=== PATIENT | female | born 1975 ===

== ENCOUNTER 2017-05-13 15:08 | Emergency (ER) | payer OTHER ==
[2017-05-13 15:09] VITALS: BMI 33.8
--- NOTE | 2017-05-13 16:50 | ED PDOC ---
HPI: CCC, URI, Sore Throat Chief Complaint (Provider): ENT Problem History Per: Patient History/Exam Limitations: no limitations <Nidia Garsia PA-C - Last Filed: 05/13/17 20:01> <Lizzette Randolph - Last Filed: 05/13/17 21:49> Time Seen by Provider: 05/13/17 15:48 Chief Complaint (Nursing): ENT Problem Additional Complaint(s): Patient reports pain to the throat specific under chin. Reports swelling and pain under the chin. Patient was seen at [facility] [place] yesterday was was diagnosed with throat infection and given Amoxicillin. States taking Amoxicillin without relief. Otherwise: (-) fever, (-) cough, (-) sore throat, (-) URI symptoms, (-) vomiting, (-) SOB, (-) dysphasia,(-) chest pain, (-) N/V/D, (-) abdominal pain, (-) flank pain, (-) urinary symptoms, (-) rash, (-) recent travel, (-) sick contacts. PMD: Shaik Terri MD (Nidia Garsia PA-C) Supervising Attending Note <Nidia Garsia PA-C - Last Filed: 05/13/17 20:01> - Supervising Attending Note The Documented history was done by the: Physician Final Inspector And Tester, Attending Physician The documented physical exam was done by the: Physician Final Inspector And Tester, Attending Physician - Attestation: I have personally seen and examined this patient.: Yes I have fully participated in the care of the patient.: Yes I have reviewed all pertinent clinical information, including history, physical exam and plan: Yes <Lizzette Randolph - Last Filed: 05/13/17 21:49> - Notes: Notes:: Marked swelling just inferior/posterior to midline mandible with ttp and erythematous tracking anterior neck inferiorly. No dental tenderness. 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 Recommend IV Decadron and IV clindamycin, will come to ER to eval patient DW pt findings and plan of care. (Lizzette Randolph) Past Medical History Reviewed: Historical Data, Nursing Documentation, Vital Signs - Medical History PMH: No Chronic Diseases - Surgical History Surgical History: No Surg Hx - Family History Family History: States: No Known Family Hx Other Family History: Breast cancer - Social History Current smoker - smoking cessation education provided: Yes (Heavy Smoker > 10 Cigarettes Daily) Alcohol: None Drugs: Denies - Immunization History Hx Tetanus Toxoid Vaccination: No Hx Influenza Vaccination: No Hx Pneumococcal Vaccination: No <Nidia Garsia PA-C - Last Filed: 05/13/17 20:01> <Lizzette Randolph - Last Filed: 05/13/17 21:49> Vital Signs: Last Vital Signs Temp 99.4 F 05/13/17 15:29 Pulse 88 05/13/17 21:43 Resp 18 05/13/17 21:43 BP 132/68 05/13/17 21:43 Pulse Ox 99 05/13/17 21:43 - Home Medications Home Medications: Ambulatory Orders Medication Instructions Recorded Amoxicillin [Amoxil 500 mg Cap] 500 mg PO TID #29 cap 05/11/17 Ibuprofen [Motrin] 600 mg PO TID #21 tab 05/11/17 - Allergies Allergies/Adverse Reactions: Allergies Allergy/AdvReac Type Severity Reaction Status Date / Time No Known Allergies Allergy Verified 05/13/17 15:29 Review of Systems ROS Statement: Except As Marked, All Systems Reviewed And Found Negative (As per HPI, otherwise negative) Constitutional: Negative for: Fever, Other (dysphasia) ENT: Positive for: Throat Pain (specific under the chin) Cardiovascular: Negative for: Chest Pain Gastrointestinal: Negative for: Vomiting Skin: Negative for: Rash <Nidia Garsia PA-C - Last Filed: 05/13/17 20:01> Physical Exam - Reviewed Nursing Documentation Reviewed: Yes Vital Signs Reviewed: Yes <Nidia Garsia PA-C - Last Filed: 05/13/17 20:01> <Lizzette Randolph - Last Filed: 05/13/17 21:49> - Physical Exam Comments: GENERAL APPEARANCE: Patient is awake, alert, oriented x 3, in moderate acute distress. SKIN: Warm, dry; (-) cyanosis, (-) rash. (-) Decubitus Ulcer EYES: (-) conjunctival pallor, (-) scleral icterus, (-) conjunctival hemorrhage. ENMT: Mucous membranes moist. TMs: (-) erythema. Airway patent: (-) stridor. Pharynx: (-) erythema, (-) exudate. (+)speaking in full sentences, (-)drooling, (+) swelling and tenderness to submental area, (+) non tender cervical adenopathy NECK: (-) tenderness, (-) stiffness, (-) meningismus, (-) lymphadenopathy. CHEST AND RESPIRATORY: (-) accessory muscle use. Lungs: (-) rales, (-) rhonchi, (-) wheezes, (-) rub; breath sounds equal bilaterally. HEART AND CARDIOVASCULAR: (-) irregularity; (-) murmur, (-) gallop, (-) rub. ABDOMEN AND GI: Soft; (-) tenderness, (-) guarding; (-) organomegaly; (-) mass ; (-) CVA tenderness. EXTREMITIES: (-) deformity; (-) cellulitis, (-) lymphangitis; (-) subungual hemorrhage; (-) edema. NEURO AND PSYCH: Mental status as above; (-) focal findings. (Nidia Garsia PA-C) - Laboratory Results Result Diagrams: 05/13/17 16:50 05/13/17 16:50 - ECG O2 Sat by Pulse Oximetry: 98 (RA) Pulse Ox Interpretation: Normal <Nidia Garsia PA-C - Last Filed: 05/13/17 20:01> - Laboratory Results Result Diagrams: 05/13/17 16:50 05/13/17 16:50 <Lizzette Randolph - Last Filed: 05/13/17 21:49> Medical Decision Making <Nidia Garsia PA-C - Last Filed: 05/13/17 20:01> <Lizzette Randolph - Last Filed: 05/13/17 21:49> Medical Decision Making: Time: 16:10 Impression : r/o alesia's angina, possible sialadenitis Plan: Neck soft tissue w/ contrast CMP CBC w/ differential Toradol 30mg IVP Blood culture IV Insertion Reevaluation Lab results reviewed, patient noted to have a white blood cell count of 13 with a left shift. On reevaluation, the patient is laying in bed comfortably in no acute distress, breathing is easy and unlabored, no drooling. Patient went to CT. Patient returned from CAT scan without any incident, results are still pending. Case endorsed to ALESHIA Keene at [address] results and final disposition. Scribe Attestation: Documented by Josie Keene acting as a scribe for PA. TINO Tidwell PA-C Scribe Attestation: All medical record entries made by the Scribe were at my direction and personally dictated by me. I have reviewed the chart and agree that the record accurately reflects my personal performance of the history, physical exam, medical decision making, and the department course for this patient. I have also personally directed, reviewed, and agree with the discharge instructions and disposition. 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 <Nidia Garsia PA-C - Last Filed: 05/13/17 20:01>
[2017-05-13 17:02] LABS: BASO # 0.1 K/uL (0.0-0.2); BASO % 0.6 % (0.0-2.0); EOS # 0.1 K/uL (0.0-0.7); HEMOGLOBIN 14.1 g/dL (12.0-16.0); LYMPH % 14.5 % (20.0-40.0); MEAN CORPUSCULAR HEMOGLOBIN 30.9 pg (27.0-31.0); MEAN CORPUSCULAR HGB CONC 33.8 g/dL (33.0-37.0); MEAN PLATELET VOLUME 11.5 fl (7.2-11.7); MONO % 7.2 % (0.0-10.0); NEUT # 10.7 K/uL (1.8-7.0); NEUT % 76.7 % (50.0-75.0); RBC 4.57 Mil/uL (3.80-5.20); RED CELL DISTRIBUTION WIDTH 14.4 % (11.5-14.5); WHITE BLOOD COUNT 13.9 K/uL (4.8-10.8)
[2017-05-13 17:05] LABS: MEAN CELL VOLUME 91.3 fl (81.0-99.0)
[2017-05-13 17:07] LABS: ALBUMIN 4.1 g/dL (3.5-5.0); ALT/SGPT 24 U/L (9-52); AST/SGOT 19 U/L (14-36); BLOOD UREA NITROGEN 10 mg/dl (7-17); CALCIUM 9.2 mg/dL (8.4-10.2); GFR AFRICAN-AMERICAN > 60; GFR NON-AFRICAN AMERICAN > 60
[2017-05-13] MEDS ORDERED: Iohexol 300 100 ML IJ ONE (18:29)
--- NOTE | 2017-05-13 20:17 | ED PDOC ---
- Laboratory Results Result Diagrams: 05/13/17 16:50 05/13/17 16:50 - ECG O2 Sat by Pulse Oximetry: 98 (RA) - Progress ED Course And Treament: IMPRESSION: - 4.5 x 0.3 cm linear/elongated low density masslike area in the floor of the mouth soft tissues in the midline, extending from the anterior aspect of the hyoid bone to the posterior cortex of the mandible. This is of uncertain etiology. It could represents a thyroglossal duct cyst. It could also represent an abscess in the floor of the mouth. There is associated soft tissue swelling. - See above for remaining findings. Thank you for allowing us to participate in the care of your patient. Dictated and Authenticated by: Dorene Thompson MD Dr. Enriquez has discussed case with Dr. Riley Clindamycin 600mg iv x 1 dose Decadron 10 mg iv x 1 dose ordered NS 1 liter 500ml per hour Seen by Dr. Riley in ED. Patient to be transferred to [facility] for management by Dr. Ceballos ENT. Disposition - Clinical Impression Clinical Impression: Neck swelling - POA Present On Arrival: None - Disposition Disposition: Other Institution Disposition Time: 23:51 Condition: STABLE Forms: [employer] (French)
--- NOTE | 2017-05-13 20:18 | CT ---
EXAM: CT Neck With Intravenous Contrast EXAM DATE/TIME: 05/13/2017 4:10 PM CLINICAL HISTORY: 41 years old, female; Signs and symptoms; Other: Swelling submental area; Additional info: Edema pain submental area TECHNIQUE: Axial computed tomography images of the neck with intravenous contrast. All CT scans at this facility use one or more dose reduction techniques, viz.: automated exposure control; ma/kV adjustment per patient size (including targeted exams where dose is matched to indication; i.e. head); or iterative reconstruction technique. Coronal and sagittal reformatted images were created and reviewed. CONTRAST: 95 mL of OMNIPAQUE-300 administered intravenously. COMPARISON: No relevant prior studies available. FINDINGS: NASOPHARYNX: No acute abnormality of the adenoidal/nasopharyngeal tonsils identified. OROPHARYNX: No acute abnormality of the palatine tonsils identified. HYPOPHARYNX: No acute abnormality of the pyriform sinuses visualized. LARYNX: No acute abnormality of the epiglottis identified. No acute abnormality of the vocal cords identified. TRACHEA: Visualized portions of the trachea appear patent. RETROPHARYNGEAL SPACE: No evidence of prevertebral/retropharyngeal fluid or fluid collection. SUBMANDIBULAR/PAROTID GLANDS: No acute abnormality of the parotid or submandibular glands identified. THYROID: Thyroid gland is mildly enlarged, and contains multiple nodules, the largest measuring 2.2 cm, and located in the right lobe anteriorly. Recommend further evaluation with thyroid ultrasound. BONES/JOINTS: No acute fractures or other acute bony abnormality visualized. Negative. SOFT TISSUES: Best seen on image 56 of series 2 and image 47 series 602, there is a elongated, low density masslike area with a linear configuration and enhancing margins, located in the floor of the mouth soft tissues, located in the midline, which extends harrison-posteriorly from the anterior aspect of the hyoid bone to the posterior mandibular cortex. This measures approximately 4.5 cm in length/AP dimensions and 3 mm in width. It is of uncertain etiology. There appears to be associated swelling of the floor of the mouth soft tissues. No associated gas. VASCULATURE: No acute abnormality of the major neck vessels seen. LYMPH NODES: No evidence of diffuse lymphadenopathy. LUNG APICES: Lung apices appear clear. IMPRESSION: - 4.5 x 0.3 cm linear/elongated low density masslike area in the floor of the mouth soft tissues in the midline, extending from the anterior aspect of the hyoid bone to the posterior cortex of the mandible. This is of uncertain etiology. It could represents a thyroglossal duct cyst. It could also represent an abscess in the floor of the mouth. There is associated soft tissue swelling. - See above for remaining findings.
[2017-05-13] MEDS ORDERED: Sodium Chloride 0.9% 1,000 ML IV STA (21:07)
[2017-05-13] MEDS ORDERED: Clindamycin 600mg/50ml NS 600 MG/50 ML BAG IVPB STA (21:27)
[2017-05-13] MEDS ORDERED: Dextrose 5%/0.9% NS 1,000 ML IV SCH (22:45)
--- NOTE | 2017-05-13 23:08 | CP.PCM.PN ---
Subjective - Date & Time of Evaluation Date of Evaluation: 05/13/17 Time of Evaluation: 22:00 - Subjective Subjective: see below Objective - Vital Signs/Intake and Output Vital Signs (last 24 hours): Temp Pulse Resp BP Pulse Ox 99.4 F 88 18 132/68 98 05/13/17 15:29 05/13/17 21:43 05/13/17 21:43 05/13/17 21:43 05/13/17 22:17 - Medications Medications: Current Medications Sodium Chloride (Sodium Chloride 0.9%) 1,000 mls @ 500 mls/hr IV .Q2H STA Stop: 05/13/17 23:06 Last Admin: 05/13/17 22:39 Dose: 500 mls/hr Dextrose/Sodium Chloride (Dextrose 5%/0.9% Ns 1000 Ml) 1,000 mls @ 100 mls/hr IV .Q10H JAY - Labs Labs: 05/13/17 16:50 05/13/17 16:50 Assessment and Plan - Assessment and Plan (Free Text) Assessment: ENT Consult CC neck/throat pain HPI 41 y/o healthy female with 5 days of throat and neck pain. She was put on Amoxicillin 3 days ago without improvement. She works in [email or web address] at [employer]. She notes progressive worsening of her complaints since Sunday. Currentlythe most pain is in the submentum. There is pain with swallowing. No voice changes. No trouble breathing. NKDA PMH denies ROS see HPI Exam awake, alert, comfortable breathing comfortably; no distress oc/op clear; FOM soft and non-tender; no FOM swelling nose clear face symmetric Neck: diffuse submental swelling, induration and erythema. trachea midline. Fiberoptic laryngoscopy: epiglottis crisp; slight vallecular swelling st the base of the epiglottis without any rotation of the epiglottis or obstruction of the airway. no hypopharyngeal or laryngeal edema. b/l TVC symmetric and mobile. airway widely patent. CT reviewed: there are 2 areas of hypodensity with rim enhancement (one anterior to the hyoid bone, the other posterior to inner cortex of the mandible in the midline Impression Neck cellulitis and small abscesses on imaging. Plan
[2017-05-13 23:18] VITALS: BP 104/66; PULSE 82; RESP 16; TEMP 98.3
[2017-05-13 23:51] VITALS: O2SAT 98
== END 2017-05-13 23:48 | disposition short-term general hospital (02) ==
LOC: H.ER 15:08
DX: R22.1 Localized swelling, mass and lump, neck (principal); F17.210 Nicotine dependence, cigarettes, uncomplicated
CPT/HCPCS: 70491; 80053; 81025; 85025; 87040; 96361; 96365; 96375; 99283; J1100; J1885; J7040; Q9967

== ENCOUNTER 2017-05-27 15:41 | Emergency (ER) | payer OTHER ==
[2017-05-27 15:41] VITALS: BMI 33.8
[2017-05-27 16:00] VITALS: RESP 18
--- NOTE | 2017-05-27 16:53 | ED PDOC ---
HPI: General Adult Time Seen by Provider: 05/27/17 16:01 Chief Complaint (Nursing): ENT Problem Chief Complaint (Provider): Throat Pain History Per: Patient History/Exam Limitations: no limitations Onset/Duration Of Symptoms: Other (x 1 month) Current Symptoms Are (Timing): Still Present Recently: Seen In ED Additional Complaint(s): Guillermo is a 41 y/o female who presents to the ED complaining of throat pain that has been ongoing for 1 month with associated swelling of the neck. Patient was seen in the ED on the and had a CT done which demonstrated a large abscess. She was evaluated in the ER by Dr. Riley and transferred to [facility] for definitive treatment. According to patient, at [facility], she was observed overnight and discharged with antibiotics. Since then she reports the swelling and pain have decreased until last night when her symptoms returned. Today, she also complains of subjective fever and pain with swallowing but denies tongue enlargement, cough, or rhinorrhea. Patient is still on a course of clindamycin. She has been taking motrin with no relief. PMD: Leanna Murray Past Medical History Reviewed: Historical Data, Nursing Documentation, Vital Signs Vital Signs: Last Vital Signs Temp 98.9 F 05/28/17 05:16 Pulse 72 05/28/17 05:16 Resp 18 05/28/17 05:16 BP 103/63 05/28/17 05:16 Pulse Ox 99 05/28/17 05:53 - Medical History PMH: No Chronic Diseases - Surgical History Surgical History: No Surg Hx - Family History Family History: States: Other Other Family History: Breast cancer - Social History Current smoker - smoking cessation education provided: Yes Alcohol: None Drugs: Denies - Immunization History Hx Tetanus Toxoid Vaccination: No Hx Influenza Vaccination: No Hx Pneumococcal Vaccination: No - Home Medications Home Medications: Ambulatory Orders Medication Instructions Recorded Amoxicillin [Amoxil 500 mg Cap] 500 mg PO TID #29 cap 05/11/17 Ibuprofen [Motrin] 600 mg PO TID #21 tab 05/11/17 - Allergies Allergies/Adverse Reactions: Allergies Allergy/AdvReac Type Severity Reaction Status Date / Time No Known Allergies Allergy Verified 05/13/17 15:29 Review of Systems ROS Statement: Except As Marked, All Systems Reviewed And Found Negative Constitutional: Positive for: Fever (subjective) ENT: Positive for: Throat Pain, Other ((+) pain with swallowing, (-) tongue enlargement). Negative for: Nose Discharge Respiratory: Negative for: Cough Physical Exam - Reviewed Nursing Documentation Reviewed: Yes Vital Signs Reviewed: Yes - Physical Exam Appears: Positive for: In Acute Distress (moderate painful distress) Head Exam: Positive for: ATRAUMATIC, NORMOCEPHALIC Skin: Positive for: Warm, Dry Eye Exam: Positive for: EOMI, PERRL ENT: Positive for: Pharynx Is (clear), Other (tacky mucous membrane). Negative for: Pharyngeal Erythema, Tonsillar Exudate, Tonsillar Swelling Neck: Negative for: Normal (soft tissue swelling anterior upper neck just under chin, (-) erythema) Cardiovascular/Chest: Positive for: Regular Rate, Rhythm. Negative for: Murmur Respiratory: Positive for: Normal Breath Sounds. Negative for: Respiratory Distress Gastrointestinal/Abdominal: Positive for: Soft. Negative for: Tenderness Back: Positive for: Normal Inspection. Negative for: Decreased ROM Extremity: Positive for: Normal ROM. Negative for: Deformity Neurologic/Psych: Positive for: Alert, Oriented. Negative for: Motor/Sensory Deficits - Laboratory Results Result Diagrams: 05/27/17 17:25 05/27/17 17:25 - ECG O2 Sat by Pulse Oximetry: 99 (RA) Pulse Ox Interpretation: Normal - Critical Care Total Time (In Min): 30 Medical Decision Making Medical Decision Making: Time: 16:26 Initial Impression: Recurrent neck abscess Initial Plan: --CMP --Lactic Acid --CBC --Blood Culture --Decadron Time: 16:53 --Discussed case with Dr. Ballard, ENT air defense control officer, who recommends repeat CT scan of neck and broad spectrum antibiotics started. Will call back for further recommendations. --CT Neck Soft Tissue ordered Accession No. : [id number] Patient Name / ID : HERMELINDA LI / [id number] Exam Date : 05/27/2017 17:56:22 ( Approved ) Study Comment : Sex / Age : F / 41Y Creator : Madie Vega MD Dictator : Geochemist : Stockroom Attendant : Madie Vega MD Approver2 : Report Date : 05/27/2017 19:15:00 My Comment : [facility] Division of Radiology [address] [address] Tel. no. Patient Name: GUILLERMO SHEN Pt. Address: [address] [place] [address]. Rec #: [id number] [place] [address]: Agustín JIMÉNEZ, Lizzette Raymond Pt CELL Order Location: [place] : 1975 Female Age: 41 Order #: [id number] Reason for exam: neck swelling h/o abscess CT Scan NECK SOFT TISSUE W/CONTRAST Exam Date: 05/27/17 This imaging exam was performed at [facility] EXAM: CT Neck With Intravenous Contrast CLINICAL HISTORY: 41 years old, female; Signs and symptoms; Mass, lump, or swelling in neck and other: H/o abcess; Additional info: Neck swelling h/o abscess TECHNIQUE: Axial computed tomography images of the neck with intravenous contrast. All CT scans at this facility use one or more dose reduction techniques, viz.: automated exposure control; ma/kV adjustment per patient size (including targeted exams where dose is matched to indication; i.e. head); or iterative reconstruction technique. Coronal and sagittal reformatted images were created and reviewed. CONTRAST: 80 mL of [id number] administered intravenously. COMPARISON: CT - NECK SOFT TISSUE W/CONTRAST 2017-05-13 18:34 FINDINGS: Nasopharynx: No acute abnormality as visualized. Oropharynx: No acute abnormality as visualized. No significant tonsillar enlargement. No peritonsillar abscess. Hypopharynx: No acute abnormality as visualized. Larynx: No acute abnormality as visualized. Normal epiglottis. Trachea: No acute abnormality as visualized. Retropharyngeal space: No acute abnormality as visualized. Submandibular/parotid glands: No acute abnormality as visualized. Glands are normal in size. Thyroid: Enlarged. Bilateral nodules, the largest appears complex measuring approximately 2 cm on the right anteriorly. Further evaluation with dedicated ultrasound recommended. Bones/joints: No acute fracture. Soft tissues: Best seen on image 36-40 of series 2 and image 38 series 602, there is a elongated, low density masslike area with a linear configuration and enhancing margins, located in the midline, extending from the anterior aspect of the hyoid bone. This is measured at approximately 3 x 1 cm. Appears to be decreased in size from prior study with area of extension to the posterior mandibular cortex not as obvious. It is of uncertain etiology. Evidence of associated swelling of the floor of the mouth soft tissues. Vasculature: No acute findings. Lymph nodes: Slight prominence of level IIa and lymph nodes. Prominent level IIIa lymph nodes on the right. Prominent level Va lymph node on the right. Lung apices: No acute abnormality as visualized. IMPRESSION: Again noted is elongated hypoattenuating area with peripheral enhancement along the midline of the floor the mouth. Appears to be decreased in size from prior study with area of extension to the posterior mandibular cortex not as obvious. Evidence of associated surrounding soft tissue swelling and mild adenopathy. Question abscess versus infected thyroglossal duct cyst. Correlate clinically. Followup imaging recommended. Dictated By: Madie Vega MD Dictated Date/Time: 05/27/171914 Signed By: Madie Vgea Date Signed: 1914 Transcribed By: SHERI Transcribe Date/Time : 05/27/171914 RAND/SHERWIN Ballard findings who will contact [facility] to determine definitive management DW pt findings and current plan of care. Reports headache. Morphine ordered. Time: 20:22 --Dr. Ballard discussed with Dr. Ceballos at [facility]. Patient to be transferred to their ER at 6am for ENT evaluation and management. --Discussed plan of care with patietn who is aggreeable --Maintenance fluids and additional dose of Q6 ordered Time: 20:49 --Dr. Ceaj, ENT resident at [facility], called. Details of patient provided to Dr. Ceja. He instructed our ER to call [facility] at 6am and reiterates that patient can be transferred to their ER at 6am. Scribe Attestation: Documented by Josep New, acting as a scribe for Lizzette Randolph MD. Provider Scribe Attestation: All medical record entries made by the Scribe were at my direction and personally dictated by me. I have reviewed the chart and agree that the record accurately reflects my personal performance of the history, physical exam, medical decision making, and the department course for this patient. I have also personally directed, reviewed, and agree with the discharge instructions and disposition. Disposition - Clinical Impression Clinical Impression: Abscess of submental region - Patient ED Disposition Is Patient to be Admitted: Transfer of Care Counseled Patient/Family Regarding: Studies Performed, Diagnosis - Disposition Disposition: Transfer of Care Disposition Time: 00:00 Condition: STABLE Forms: [employer] (Maltese) Patient Signed Over To: Kelvin Chadwick
[2017-05-27] MEDS ORDERED: Piperacillin/Tazobact 3.375 GM in Sodium Chloride 0.9% 100 ML IV STA (16:58)
[2017-05-27] MEDS ORDERED: Piperacillin/Tazobact 3.375 GM in Sodium Chloride 0.9% 100 ML IVPB STA (17:00)
[2017-05-27] MEDS ORDERED: Piperacillin/Tazobact 3.375 gm Inj IVPB ONE (17:27)
[2017-05-27 17:41] LABS: ALB/GLOB RATIO 1.1 (1.0-2.1); ALBUMIN 3.9 g/dL (3.5-5.0); ALT/SGPT 23 U/L (9-52); AST/SGOT 21 U/L (14-36); BLOOD UREA NITROGEN 9 mg/dl (7-17); GFR AFRICAN-AMERICAN > 60; GFR NON-AFRICAN AMERICAN > 60
[2017-05-27 17:48] LABS: BASO # 0.2 K/uL (0.0-0.2); BASO % 1.3 % (0.0-2.0); EOS # 0.1 K/uL (0.0-0.7); EOS % 1.1 % (0.0-4.0); HEMOGLOBIN 13.9 g/dL (12.0-16.0); LYMPH # 1.9 K/uL (1.0-4.3); LYMPH % 14.6 % (20.0-40.0); MEAN CELL VOLUME 91.4 fl (81.0-99.0); MEAN CORPUSCULAR HEMOGLOBIN 30.9 pg (27.0-31.0); MEAN CORPUSCULAR HGB CONC 33.8 g/dL (33.0-37.0); MEAN PLATELET VOLUME 11.6 fl (7.2-11.7); MONO # 0.9 K/uL (0.0-0.8); MONO % 6.8 % (0.0-10.0); NEUT # 9.7 K/uL (1.8-7.0); NEUT % 76.2 % (50.0-75.0); NRBC % 0.1 % (0.0-0.0); RBC 4.51 Mil/uL (3.80-5.20); WHITE BLOOD COUNT 12.7 K/uL (4.8-10.8)
[2017-05-27] MEDS ORDERED: Iohexol 300 100 ML IJ ONE (17:50)
[2017-05-27] MEDS ORDERED: Sodium Chloride 0.9% 100 ML ONE (17:51)
--- NOTE | 2017-05-27 19:15 | CT ---
EXAM: CT Neck With Intravenous Contrast CLINICAL HISTORY: 41 years old, female; Signs and symptoms; Mass, lump, or swelling in neck and other: H/o abcess; Additional info: Neck swelling h/o abscess TECHNIQUE: Axial computed tomography images of the neck with intravenous contrast. All CT scans at this facility use one or more dose reduction techniques, viz.: automated exposure control; ma/kV adjustment per patient size (including targeted exams where dose is matched to indication; i.e. head); or iterative reconstruction technique. Coronal and sagittal reformatted images were created and reviewed. CONTRAST: 80 mL of [id number] administered intravenously. COMPARISON: CT - NECK SOFT TISSUE W/CONTRAST 2017-05-13 18:34 FINDINGS: Nasopharynx: No acute abnormality as visualized. Oropharynx: No acute abnormality as visualized. No significant tonsillar enlargement. No peritonsillar abscess. Hypopharynx: No acute abnormality as visualized. Larynx: No acute abnormality as visualized. Normal epiglottis. Trachea: No acute abnormality as visualized. Retropharyngeal space: No acute abnormality as visualized. Submandibular/parotid glands: No acute abnormality as visualized. Glands are normal in size. Thyroid: Enlarged. Bilateral nodules, the largest appears complex measuring approximately 2 cm on the right anteriorly. Further evaluation with dedicated ultrasound recommended. Bones/joints: No acute fracture. Soft tissues: Best seen on image [id number] of series 2 and image 38 series 602, there is a elongated, low density masslike area with a linear configuration and enhancing margins, located in the midline, extending from the anterior aspect of the hyoid bone. This is measured at approximately 3 x 1 cm. Appears to be decreased in size from prior study with area of extension to the posterior mandibular cortex not as obvious. It is of uncertain etiology. Evidence of associated swelling of the floor of the mouth soft tissues. Vasculature: No acute findings. Lymph nodes: Slight prominence of level IIa and lymph nodes. Prominent level IIIa lymph nodes on the right. Prominent level Va lymph node on the right. Lung apices: No acute abnormality as visualized. IMPRESSION: Again noted is elongated hypoattenuating area with peripheral enhancement along the midline of the floor the mouth. Appears to be decreased in size from prior study with area of extension to the posterior mandibular cortex not as obvious. Evidence of associated surrounding soft tissue swelling and mild adenopathy. Question abscess versus infected thyroglossal duct cyst. Correlate clinically. Followup imaging recommended.
[2017-05-27] MEDS ORDERED: Dextrose 5%/0.9% NS 1,000 ML IV SCH (20:30)
[2017-05-27] MEDS ORDERED: Piperacillin/Tazobact 3.375 GM in Sodium Chloride 0.9% 100 ML IVPB SCH (22:00)
--- NOTE | 2017-05-28 00:34 | ED PDOC ---
- Laboratory Results Result Diagrams: 05/27/17 17:25 05/27/17 17:25 - ECG O2 Sat by Pulse Oximetry: 99 (RA) Medical Decision Making Medical Decision Makin Patient signed out to this provider from Dr. Randolph pending transfer to [facility] for definitive ENT management. 0300 pt resting comfortably no distress [address] Madrigal of [facility] ED, who accepts patient for transfer for ENT evaluation by Dr. Ceballos. Dx: submental abscess Scribe Attestation: Documented by Katherine Levy acting as a scribe for Kelvin Chadwick MD. Scribe Attestation: All medical record entries made by the Scribe were at my direction and personally dictated by me. I have reviewed the chart and agree that the record accurately reflects my personal performance of the history, physical exam, medical decision making, and the department course for this patient. I have also personally directed, reviewed, and agree with the discharge instructions and disposition. Disposition Counseled Patient/Family Regarding: Studies Performed, Diagnosis, Need For Followup - Clinical Impression Clinical Impression: Abscess of submental region - POA Present On Arrival: None - Disposition Disposition: Other Institution Disposition Time: 05:45 Condition: STABLE Forms: [employer] (Bahamian)
[2017-05-28 05:17] VITALS: BP 103/63; PULSE 72; TEMP 98.9
[2017-05-28 05:53] VITALS: O2SAT 99
== END 2017-05-28 07:00 | disposition short-term general hospital (02) ==
LOC: H.ER 15:41
DX: K12.2 Cellulitis and abscess of mouth (principal)
CPT/HCPCS: 70491; 80053; 81025; 83605; 85025; 87040; 96374; 96375; 96376; 99284; J1100; J2270; J2543; J7042; Q9967

== ENCOUNTER 2018-01-15 16:35 | Emergency (ER) | payer SELFPAY ==
[2018-01-15 16:36] VITALS: BMI 33.8
--- NOTE | 2018-01-15 19:24 | ED PDOC ---
HPI: CCC, URI, Sore Throat Time Seen by Provider: 01/15/18 17:54 Chief Complaint (Nursing): ENT Problem Chief Complaint (Provider): Throat pain, 2 days, no fever History Per: Patient History/Exam Limitations: no limitations Onset/Duration Of Symptoms: Days Current Symptoms Are (Timing): Still Present Additional Complaint(s): 42 yo female with no medical problems presents for evaluation of throat pain x 2 days. No fever/chills. Pain worse with swallowing. Pt states she has pain on both sides of throat. Pt states she had a peritonsillar abscess in the past and this does not feels as severe. Pt able to tolerate PO. Pt in ER with 2 sons who are also being seen as a patients. Past Medical History Reviewed: Historical Data, Nursing Documentation, Vital Signs Vital Signs: Last Vital Signs Temp 98 F 01/15/18 16:54 Pulse 84 01/15/18 16:54 Resp 16 01/15/18 16:54 BP 127/81 01/15/18 16:54 Pulse Ox 97 01/15/18 16:54 - Medical History PMH: No Chronic Diseases - Surgical History Surgical History: No Surg Hx - Family History Family History: States: Unknown Family Hx - Living Arrangements Living Arrangements: With Family - Social History Current smoker - smoking cessation education provided: No - Immunization History Hx Tetanus Toxoid Vaccination: No Hx Influenza Vaccination: No Hx Pneumococcal Vaccination: No - Home Medications Home Medications: Ambulatory Orders Medication Instructions Recorded Amoxicillin [Amoxil 500 mg Cap] 500 mg PO TID #29 cap 05/11/17 Ibuprofen [Motrin] 600 mg PO TID #21 tab 05/11/17 predniSONE [predniSONE Tab] 60 mg PO ONCE #3 tab 01/15/18 - Allergies Allergies/Adverse Reactions: Allergies Allergy/AdvReac Type Severity Reaction Status Date / Time No Known Allergies Allergy Verified 05/13/17 15:29 Review of Systems ROS Statement: Except As Marked, All Systems Reviewed And Found Negative Constitutional: Negative for: Fever, Chills ENT: Positive for: Throat Pain. Negative for: Ear Pain Cardiovascular: Negative for: Chest Pain, Palpitations Respiratory: Negative for: Cough, Shortness of Breath Gastrointestinal: Negative for: Nausea, Vomiting Genitourinary Female: Negative for: Dysuria Musculoskeletal: Negative for: Neck Pain, Shoulder Pain Physical Exam - Reviewed Nursing Documentation Reviewed: Yes Vital Signs Reviewed: Yes - Physical Exam Appears: Positive for: Well, Non-toxic, No Acute Distress Head Exam: Positive for: ATRAUMATIC, NORMAL INSPECTION, NORMOCEPHALIC Skin: Positive for: Normal Color, Warm, DRY Eye Exam: Positive for: Normal appearance ENT: Positive for: Normal ENT Inspection, Pharynx Is Neck: Positive for: Normal, Painless ROM Cardiovascular/Chest: Positive for: Regular Rate, Rhythm Respiratory: Positive for: Normal Breath Sounds. Negative for: Accessory Muscle Use, Respiratory Distress Back: Positive for: Normal Inspection Extremity: Positive for: Normal ROM Neurologic/Psych: Positive for: Alert, Oriented - ECG O2 Sat by Pulse Oximetry: 97 Medical Decision Making Medical Decision Making: Strep normal Disposition - Clinical Impression Clinical Impression: Throat pain - Patient ED Disposition Is Patient to be Admitted: No Counseled Patient/Family Regarding: Diagnosis, Need For Followup, Rx Given - Disposition [facility] Disposition: Routine/Home Disposition Time: 19:26 Condition: GOOD Prescriptions: predniSONE [predniSONE Tab] 60 mg PO ONCE #3 tab Instructions: Sore Throat in Adults
[2018-01-16 00:18] VITALS: BP 131/74; PULSE 82; RESP 17; TEMP 98.3; O2SAT 99
== END 2018-01-15 19:51 | disposition home or self-care (01) ==
LOC: H.ER 16:35
DX: R07.0 Pain in throat (principal)